=== PATIENT | male | born 1975 | race Caucasian/White ===

== ENCOUNTER 2021-05-27 15:52 | Emergency (ER) | payer OTHER ==
[2021-05-27 16:49] LABS: HEMOGLOBIN 15.8 gm/dl (14.0-17.5); RED BLOOD COUNT 5.14 M/UL (4.20-5.50); WHITE BLOOD COUNT 9.2 K/UL (4.5-11.0)
[2021-05-27 17:08] LABS: BUN/CREATININE RATIO 14 (0-10)
== END 2021-05-27 18:45 | disposition home or self-care (01) ==
LOC: ER1 15:52
PROVIDERS: Physician Assistant
DX: R10.13 Epigastric pain (principal); K21.9 Gastro-esophageal reflux disease without esophagitis; F17.200 Nicotine dependence, unspecified, uncomplicated; Z88.0 Allergy status to penicillin; Z88.5 Allergy status to narcotic agent; Z90.89 Acquired absence of other organs
CPT/HCPCS: 80053; 81001; 85025; 99284; Q9967

== ENCOUNTER → 2021-06-17 | Outpatient (CLI) | payer OTHER ==
[2021-06-17 11:15] LABS: HEMOGLOBIN 16.3 gm/dl (14.0-17.5); RED BLOOD COUNT 5.06 M/UL (4.20-5.50); WHITE BLOOD COUNT 6.4 K/UL (4.5-11.0)
[2021-06-17 11:43] LABS: BUN/CREATININE RATIO 14 (0-10)
[2021-06-18 09:13] LABS: VITAMIN D, 25-HYDROXY 18.9 ng/mL (30.0-100.0)
[2021-06-18 10:13] LABS: SARS COV-2 IGG AB Negative (Negative)
== END ==
LOC: LAB 10:37
PROVIDERS: Family Medicine
DX: Z01.84 Encounter for antibody response examination (principal); E55.9 Vitamin D deficiency, unspecified; E66.09 Other obesity due to excess calories; Z20.822 Contact with and (suspected) exposure to COVID-19
CPT/HCPCS: 36415; 80053; 80061; 85025; 86769

== ENCOUNTER → 2021-07-03 | Outpatient (CLI) | payer OTHER | LOC: NM 08:40 | DX: K80.50 Calculus of bile duct without cholangitis or cholecystitis without obstruction (principal) | CPT/HCPCS: 78227; A9537 ==

== ENCOUNTER 2022-03-18 21:11 | Observation (INO) | payer OTHER ==
[~2022-03-18] VITALS: Ht 177.8 cm; Wt 108.9 kg
[2022-03-18 21:52] LABS: HEMOGLOBIN 15.9 gm/dl (14.0-17.5); RED BLOOD COUNT 4.97 M/UL (4.20-5.50); WHITE BLOOD COUNT 8.5 K/UL (4.5-11.0)
[2022-03-18 22:32] LABS: BUN/CREATININE RATIO 14 (0-10)
[2022-03-19] MEDS ORDERED: ESOMEPRAZOLE MA40 MG PO (12:01)
[2022-03-19] MEDS ORDERED: KENALOG CREAM 080 GM TOP (12:02)
[2022-03-19] MEDS ORDERED: PROVENTIL HFA6.7 GM INH (12:02)
[2022-03-19] MEDS ORDERED: NAPROXEN250 MG PO (12:03)
--- NOTE | 2022-03-19 22:58 | NUR ---
POSITIVE ALLENS TEST 03/19/22 AT 2230
[2022-03-20 02:23] LABS: HEMOGLOBIN 15.7 gm/dl (14.0-17.5); RED BLOOD COUNT 4.9 M/UL (4.20-5.50); WHITE BLOOD COUNT 8.6 K/UL (4.5-11.0)
[2022-03-20 02:50] LABS: BUN/CREATININE RATIO 16 (0-10)
--- NOTE | 2022-03-20 09:45 | NUR ---
PATIENT TRANSPORTED TO [facility]
[2022-03-20] MEDS ORDERED: ASPIRIN EC81 MG PO (13:43)
[2022-03-20] MEDS ORDERED: ATORVASTATIN CA20 MG PO (13:43)
[2022-03-20] MEDS ORDERED: COZAAR25 MG PO (13:43)
== END 2022-03-20 13:42 | disposition home or self-care (01) ==
LOC: ER1 21:11 → M/S 03-19 02:36 → CDU 03-19 02:36 → M/S 03-19 04:13
PROVIDERS: Family Medicine; Internal Medicine; ADMIT Internal Medicine
PROC: 4A023N7 Measurement of Cardiac Sampling and Pressure, Left Heart, Percutaneous Approach (ICD-10-PCS; principal; 2022-03-20)
PROC: B2111ZZ Fluoroscopy of Multiple Coronary Arteries using Low Osmolar Contrast (ICD-10-PCS; 2022-03-20)
DX: R07.89 Other chest pain (principal); K21.9 Gastro-esophageal reflux disease without esophagitis; I99.8 Other disorder of circulatory system; I25.10 Atherosclerotic heart disease of native coronary artery without angina pectoris; M19.90 Unspecified osteoarthritis, unspecified site; F17.210 Nicotine dependence, cigarettes, uncomplicated; M54.50 Low back pain, unspecified; G89.29 Other chronic pain; Z90.49 Acquired absence of other specified parts of digestive tract; Z98.52 Vasectomy status; Z90.89 Acquired absence of other organs; Z79.899 Other long term (current) drug therapy
CPT/HCPCS: ECHO; 36415; 71045; 71275; 78452; 80048; 80053; 80061; 82550; 82553; 84484; 85025; 93005; 93017; 93306; 99152; 99153; 99285; A9502; C1769; C1887; C1894; G0378; J0461; J1644; J2250; J2785; J3010; J7040; Q9967